=== PATIENT | male | born 1955 | race Caucasian/White ===

== ENCOUNTER → 2017-07-01 | Outpatient (CLI) | payer OTHER ==
--- NOTE | 2017-07-01 13:22 | RAD ---
Indication: Right arm pain and numbness. Technique: Grayscale, color-flow, and spectral waveform analysis was performed. No comparison is available. Findings: All visualized vein segments are compressible. There is normal phasicity of waveform and augmentation. There is no thrombus on grayscale or color imaging. Impression: No evidence of deep vein thrombosis in the right upper extremity.
--- NOTE | 2017-07-01 13:38 | RAD ---
Indication: No known injury, neck pain and right thumb numbness. Thumb is also cold to touch. Technique: Cervical spine series contains 4 images. No comparison is available. Findings: There is no fracture or dislocation. Prevertebral soft tissues are within normal limits. There is no widening of the atlantodental interval. Disc osteophyte complexes are noted, most notably at C5-C6 where there is also narrowing of the interspace. Uncinate process spurring is also greatest at C5-C6. Facet hypertrophy appears greatest at C5-C6. Impression: 1. Degenerative changes in the cervical spine are greatest at C5-C6 where they are moderate in degree. If further workup is required, consider MRI. 2. No evidence of an acute fracture or dislocation.
== END | disposition home or self-care (01) ==
LOC: US 11:29
PROVIDERS: ATTEND Nurse Practitioner Family
DX: M47.892 Other spondylosis, cervical region (principal); M25.78 Osteophyte, vertebrae; M53.82 Other specified dorsopathies, cervical region
CPT/HCPCS: 72040; 93971